=== PATIENT | female | born 1960 | race Asian ===

== ENCOUNTER 2017-03-21 19:50 | Emergency (ER) | payer OTHER ==
[~2017-03-21] VITALS: Ht 147.3 cm; Wt 47.0 kg
[2017-03-21 20:59] LABS: ADD MIUA? YES; BILIRUBIN NEGATIVE; BLOOD LARGE; COLOR YELLOW ((YELLOW)); GLUCOSE (STRIP) NEGATIVE; KETONES NEGATIVE; LEUKOCYTES LARGE; NITRITE NEGATIVE; PROTEIN (STRIP) NEGATIVE; SPECIFIC GRAVITY 1.001 (1.000-1.030); UROBILINOGEN 0.2 MG/DL (0.2-1.0)
[2017-03-21] MEDS ORDERED: CIPRO500 MG PO (21:09)
[2017-03-21 21:10] LABS: BACTERIA RARE /HPF; EPITHELIAL CELLS RARE /HPF; MUCUS TRACE /LPF; UCUL ADDED? YES; WHITE BLOOD CELLS TNTC /HPF (0-5); WHITE BLOOD CELLS CLUMP MOD /HPF (0-5)
[2017-03-21 21:18] VITALS: BP 126/88
== END 2017-03-21 21:19 | disposition home or self-care (01) ==
LOC: EME 19:50
DX: N39.0 Urinary tract infection, site not specified (principal)
CPT/HCPCS: 81003; 87086; 99281; 99284